=== PATIENT | male | born 1995 ===

== ENCOUNTER → 2020-12-01 | Outpatient (CLI) | payer SELFPAY ==
[2020-12-03 00:01] LABS: CHLAMYDIA TRACHOMATIS, NAA Negative (Negative)
== END | disposition home or self-care (01) ==
LOC: PLD 13:43 → LAB SHORT 13:43
PROVIDERS: General Practice
DX: N48.1 Balanitis (principal)
CPT/HCPCS: 87077; 87086; 87186; 87491; 87591